=== PATIENT | female | born 1990 | race Caucasian/White ===

== ENCOUNTER 2019-04-29 15:22 | Emergency (ER) | payer MEDICAID, OTHER ==
[~2019-04-29] VITALS: Ht 165.1 cm; Wt 117.9 kg
[2019-04-29 15:39] VITALS: BP 167/94
== END 2019-04-29 16:29 | disposition home or self-care (01) ==
LOC: ER 15:22
DX: F41.9 Anxiety disorder, unspecified (principal); Z76.0 Encounter for issue of repeat prescription; K21.9 Gastro-esophageal reflux disease without esophagitis; I10 Essential (primary) hypertension